=== PATIENT | female | born 1945 | race Caucasian/White ===

== ENCOUNTER 2018-10-19 12:47 | Emergency (ER) | payer MEDICARE, OTHER ==
[2018-10-19 12:58] VITALS: BP 183/104
== END 2018-10-19 12:59 | disposition home or self-care (01) ==
LOC: ED 12:47
DX: S61.210D Laceration without foreign body of right index finger without damage to nail, subsequent encounter (principal)

== ENCOUNTER → 2018-10-26 | Outpatient (CLI) | payer MEDICARE, OTHER ==
[~2018-10-26] VITALS: Ht 160 cm; Wt 63.6 kg
[~2018-10-26] MED LIST: HYZAAR 50-12.51 EACH PO
[2018-10-26 09:16] LABS: EOS # 0.2 (0.04-0.40); EOS % 2.4 % (1.0-5.0); HEMATOCRIT 39.4 % (37.0-47.0); HEMOGLOBIN 12.5 g/dL (12.5-16.0); LYMPH# 1.9 (1.50-4.00); MEAN CELL VOLUME 85 fl (78-100); MEAN CORPUSCULAR HEMOGLOBIN 27 pg (27-31); MEAN CORPUSCULAR HGB CONC 32 g/dL (33-37); MEAN PLATELET VOLUME 10.6 fl (7.4-10.4); MONO # 0.5 (0.20-0.80); NEU # 4.4 (1.40-6.50); PLATELET COUNT 273 K/mm3 (130-400); RED BLOOD COUNT 4.63 M/mm3 (4.10-5.30); RED CELL DISTRIBUTION WIDTH 13.7 % (11.5-14.5); WHITE BLOOD COUNT 7.1 K/mm3 (4.8-10.8)
[2018-10-26 09:17] VITALS: BP 184/103
[2018-10-26 09:26] LABS: ALBUMIN 4.6 g/dL (3.5-5.0); CALCIUM 9.4 mg/dL (8.4-10.2); POTASSIUM 4.5 mmol/L (3.6-5.0); TOTAL BILIRUBIN 0.6 mg/dL (0.2-1.3); TOTAL PROTEIN 8.4 g/dL (6.3-8.2)
[2018-10-26 09:48] LABS: URINE APPEARANCE CLOUDY; URINE BILIRUBIN NEGATIVE (NEGATIVE); URINE BLOOD 50 ery/uL (NEGATIVE); URINE COLOR YELLOW; URINE GLUCOSE NEGATIVE (NEGATIVE); URINE KETONE NEGATIVE (NEGATIVE); URINE LEUKOCYTE ESTERASE 2+ (NEGATIVE); URINE NITRATE POSITIVE (NEGATIVE); URINE PROTEIN(semi-quant) TRACE mg/dL (NEGATIVE); URINE UROBILINOGEN NORMAL (NORMAL); URINE WBC >50 /hpf (0-3)
[2018-10-27 06:59] LABS: PROTHROMBIN TIME 9.4 SECONDS (9.0-12.0)
== END ==
LOC: LAB 08:41
PROVIDERS: Internal Medicine
DX: Z01.818 Encounter for other preprocedural examination (principal); H26.9 Unspecified cataract

== ENCOUNTER 2018-11-07 17:23 | Emergency (ER) | payer MEDICARE, OTHER ==
[~2018-11-07] VITALS: Ht 157.5 cm; Wt 63.6 kg
[2018-11-07] MEDS ORDERED: ZOFRAN4 M2 PO (17:37)
[2018-11-07] MEDS ORDERED: DEXAMETHASONE/TO5 ML OP (17:37)
[2018-11-07 18:00] LABS: EOS % 0.1 % (1.0-5.0); HEMATOCRIT 40.5 % (37.0-47.0); HEMOGLOBIN 14.3 g/dL (12.5-16.0); LYMPH# 2.7 (1.50-4.00); MEAN CELL VOLUME 79 fl (78-100); MEAN CORPUSCULAR HEMOGLOBIN 28 pg (27-31); MEAN CORPUSCULAR HGB CONC 35 g/dL (33-37); MEAN PLATELET VOLUME 10.1 fl (7.4-10.4); MONO # 1.2 (0.20-0.80); PLATELET COUNT 368 K/mm3 (130-400); RED BLOOD COUNT 5.15 M/mm3 (4.10-5.30); RED CELL DISTRIBUTION WIDTH 12.5 % (11.5-14.5); WHITE BLOOD COUNT 13.4 K/mm3 (4.8-10.8)
[2018-11-07 18:03] LABS: NEU # 9.5 (1.40-6.50)
[2018-11-07 18:17] LABS: ALBUMIN 4.7 g/dL (3.4-4.8); CALCIUM 10.2 mg/dL (8.4-10.2); POTASSIUM 3.4 mmol/L (3.5-5.1); TOTAL PROTEIN 8.2 g/dL (6.2-8.1)
[2018-11-07 18:25] LABS: URINE APPEARANCE HAZY; URINE COLOR YELLOW; URINE PROTEIN(semi-quant) 2+ mg/dL (NEGATIVE)
[2018-11-07 18:26] LABS: URINE BILIRUBIN NEGATIVE (NEGATIVE); URINE BLOOD 250 ery/uL (NEGATIVE); URINE GLUCOSE NEGATIVE (NEGATIVE); URINE KETONE 1+ (NEGATIVE); URINE LEUKOCYTE ESTERASE 1+ (NEGATIVE); URINE NITRATE NEGATIVE (NEGATIVE); URINE UROBILINOGEN NORMAL (NORMAL); URINE WBC 31-50 /hpf (0-3)
[2018-11-07] MEDS ORDERED: MACROBID 100 M100 MG PO (21:09)
[2018-11-07 21:18] VITALS: BP 160/88
== END 2018-11-07 21:18 | disposition home or self-care (01) ==
LOC: ED 17:23
PROVIDERS: Family Medicine
DX: E86.0 Dehydration (principal); E87.1 Hypo-osmolality and hyponatremia; N39.0 Urinary tract infection, site not specified; I10 Essential (primary) hypertension
CPT/HCPCS: A4216; J0696; J7030

== ENCOUNTER → 2018-11-23 | Outpatient (CLI) | payer MEDICARE, OTHER ==
[2018-11-07 21:18] VITALS: BP 160/88
[~2018-11-23] MED LIST changes: +DEXAMETHASONE/TO5 ML OP; +MACROBID 100 M100 MG PO; +ZOFRAN4 M2 PO
[2018-11-23 09:39] LABS: CALCIUM 9.7 mg/dL (8.3-10.5); POTASSIUM 3.9 mmol/L (3.5-5.1)
== END ==
LOC: LAB 09:04
PROVIDERS: Internal Medicine
DX: I10 Essential (primary) hypertension (principal); E87.1 Hypo-osmolality and hyponatremia

== ENCOUNTER → 2019-02-15 | Outpatient (CLI) | payer MEDICARE, OTHER ==
[2019-02-15 09:26] LABS: POTASSIUM 4.5 mmol/L (3.5-5.1)
[2019-02-15 09:28] LABS: CALCIUM 10.3 mg/dL (8.3-10.5)
== END ==
LOC: LAB 09:09
PROVIDERS: Internal Medicine
DX: I10 Essential (primary) hypertension (principal); E87.1 Hypo-osmolality and hyponatremia

== ENCOUNTER → 2019-11-01 | Outpatient (CLI) | payer MEDICARE, OTHER ==
[2019-11-01 10:22] LABS: EOS # 0.2 (0.04-0.40); EOS % 2.4 % (1.0-5.0); HEMATOCRIT 38.9 % (37.0-47.0); HEMOGLOBIN 12.5 g/dL (12.5-16.0); LYMPH# 2.7 (1.50-4.00); MEAN CELL VOLUME 84 fl (78-100); MEAN CORPUSCULAR HEMOGLOBIN 27 pg (27-31); MEAN CORPUSCULAR HGB CONC 32 g/dL (33-37); MEAN PLATELET VOLUME 10.2 fl (7.4-10.4); MONO # 0.6 (0.20-0.80); NEU # 4.4 (1.40-6.50); PLATELET COUNT 267 K/mm3 (130-400); RED BLOOD COUNT 4.65 M/mm3 (4.10-5.30); RED CELL DISTRIBUTION WIDTH 13.7 % (11.5-14.5); WHITE BLOOD COUNT 7.9 K/mm3 (4.8-10.8)
[2019-11-01 10:32] LABS: POTASSIUM 4.3 mmol/L (3.5-5.1)
[2019-11-01 10:33] LABS: ALBUMIN 4.7 g/dL (3.4-4.8)
[2019-11-01 10:34] LABS: CALCIUM 9.9 mg/dL (8.3-10.5)
[2019-11-01 10:37] LABS: TOTAL BILIRUBIN 0.5 mg/dL (0.2-1.2)
[2019-11-01 10:41] LABS: MAGNESIUM 2.07 mg/dL (1.60-2.60)
[2019-11-01 11:26] LABS: ERYTHROCYTE SEDIMENTATION RATE 32 mm/hr (0-30)
== END ==
LOC: LAB 10:06
PROVIDERS: Internal Medicine
DX: Z12.11 Encounter for screening for malignant neoplasm of colon (principal); I10 Essential (primary) hypertension; K90.9 Intestinal malabsorption, unspecified; E78.2 Mixed hyperlipidemia

== ENCOUNTER → 2019-11-03 | Outpatient (CLI) | payer MEDICARE, OTHER | LOC: MAMMO 09:09 | DX: Z12.31 Encounter for screening mammogram for malignant neoplasm of breast (principal); Z13.820 Encounter for screening for osteoporosis; M85.852 Other specified disorders of bone density and structure, left thigh; M85.851 Other specified disorders of bone density and structure, right thigh ==

== ENCOUNTER → 2019-11-03 | Outpatient (CLI) | payer MEDICARE, OTHER | LOC: MAMMO 09:10 | DX: Z12.31 Encounter for screening mammogram for malignant neoplasm of breast (principal); N64.89 Other specified disorders of breast; M85.80 Other specified disorders of bone density and structure, unspecified site ==

== ENCOUNTER → 2019-12-06 | Outpatient (CLI) | payer MEDICARE, OTHER | LOC: LAB 08:04 | DX: Z01.812 Encounter for preprocedural laboratory examination (principal); Z20.828 Contact with and (suspected) exposure to other viral communicable diseases ==

== ENCOUNTER → 2019-12-09 | Day surgery (SDC) | payer MEDICARE, OTHER | LOC: MSO 07:09 | DX: Z12.11 Encounter for screening for malignant neoplasm of colon (principal); K57.30 Diverticulosis of large intestine without perforation or abscess without bleeding; Z88.8 Allergy status to other drugs, medicaments and biological substances; Z88.0 Allergy status to penicillin; I10 Essential (primary) hypertension | CPT/HCPCS: G0121; 00812; J2704; J7120 ==

== ENCOUNTER 2021-01-01 08:47 | Emergency (ER) | payer MEDICARE, OTHER ==
[2021-01-01 08:56] VITALS: BP 154/96
[2021-01-01] MEDS ORDERED: VALSARTAN AND H1 TA1 PO (09:00)
[2021-01-01] MEDS ORDERED: NORCO 325 MG-51 TA1 PO (11:18)
== END 2021-01-01 11:45 | disposition home or self-care (01) ==
LOC: ED 08:47
DX: S62.396A Other fracture of fifth metacarpal bone, right hand, initial encounter for closed fracture (principal); I10 Essential (primary) hypertension; Z88.0 Allergy status to penicillin; Z79.899 Other long term (current) drug therapy; W22.8XXA Striking against or struck by other objects, initial encounter

== ENCOUNTER → 2022-01-22 | Outpatient (CLI) | payer MEDICARE, OTHER ==
[~2022-01-22] MED LIST changes: +NORCO 325 MG-51 TA1 PO; +VALSARTAN AND H1 TA1 PO
[2022-01-22 16:18] LABS: BASO # 0.02 K/mm3 (0.02-0.10); EOS # 0.23 K/mm3 (0.04-0.40); EOS % 2.1 % (1.0-5.0); HEMATOCRIT 35.9 % (37.0-47.0); LYMPH# 3.15 K/mm3 (1.50-4.00); MEAN CELL VOLUME 84 fl (78-100); MEAN CORPUSCULAR HEMOGLOBIN 28 pg (27-31); MEAN CORPUSCULAR HGB CONC 33 g/dL (33-37); MEAN PLATELET VOLUME 10.1 fl (7.4-10.4); MONO # 0.76 K/mm3 (0.20-0.80); NEU # 6.58 K/mm3 (1.40-6.50); PLATELET COUNT 272 K/mm3 (130-400); RED BLOOD COUNT 4.26 M/mm3 (4.10-5.30); RED CELL DISTRIBUTION WIDTH 12.4 % (11.5-14.5); WHITE BLOOD COUNT 10.8 K/mm3 (4.8-10.8)
[2022-01-22 16:26] LABS: ALBUMIN 4.6 g/dL (3.4-4.8); POTASSIUM 3.9 mmol/L (3.5-5.1)
[2022-01-22 16:27] LABS: CALCIUM 10.1 mg/dL (8.3-10.5)
[2022-01-22 16:28] LABS: TOTAL PROTEIN 7.7 g/dL (6.2-8.1)
[2022-01-22 16:30] LABS: TOTAL BILIRUBIN 0.7 mg/dL (0.2-1.2)
[2022-01-22 16:35] LABS: MAGNESIUM 1.76 mg/dL (1.60-2.60)
[2022-01-22 17:26] LABS: ERYTHROCYTE SEDIMENTATION RATE 39 mm/hr (0-30)
== END ==
LOC: LAB 15:56
PROVIDERS: Internal Medicine
DX: Z12.39 Encounter for other screening for malignant neoplasm of breast (principal); M81.0 Age-related osteoporosis without current pathological fracture; I10 Essential (primary) hypertension; E78.2 Mixed hyperlipidemia; K90.9 Intestinal malabsorption, unspecified; E55.9 Vitamin D deficiency, unspecified

== ENCOUNTER → 2022-02-26 | Outpatient (CLI) | payer MEDICARE, OTHER | LOC: MAMMO 11:21 | DX: M81.0 Age-related osteoporosis without current pathological fracture (principal); Z12.31 Encounter for screening mammogram for malignant neoplasm of breast ==

== ENCOUNTER → 2022-02-26 | Outpatient (CLI) | payer MEDICARE, OTHER | LOC: RAD 11:40 → MAMMO 12:00 | DX: Z12.31 Encounter for screening mammogram for malignant neoplasm of breast (principal); Z13.820 Encounter for screening for osteoporosis; M85.89 Other specified disorders of bone density and structure, multiple sites ==

== ENCOUNTER 2022-09-25 13:25 | Emergency (ER) | payer MEDICARE, OTHER ==
[~2022-09-25] VITALS: Ht 157.5 cm; Wt 63.6 kg
[2022-09-25] MEDS ORDERED: AMBIEN5 M1 PO (13:36)
[2022-09-25] MEDS ORDERED: PANTOPRAZOLE SO40 MG PO (13:36)
[2022-09-25] MEDS ORDERED: ROSUVASTATIN CA20 MG PO (13:36)
[2022-09-25] MEDS ORDERED: LATANOPROST 2.2.5 ML OU (13:36)
[2022-09-25 15:49] VITALS: BP 165/84
[2022-09-26] MEDS ORDERED: ACETAMINOPHEN-H1 TA2 PO (15:03)
[2022-09-26] MEDS ORDERED: KETOROLAC10 MG PO (16:29)
[2022-09-26] MEDS ORDERED: ONDANSETRON HYDR4 MG PO (16:30)
== END 2022-09-25 15:50 | disposition home or self-care (01) ==
LOC: ED 13:25
DX: S63.281A Dislocation of proximal interphalangeal joint of left index finger, initial encounter (principal); S01.21XA Laceration without foreign body of nose, initial encounter; Z28.310 Unvaccinated for COVID-19; Z23 Encounter for immunization; W18.30XA Fall on same level, unspecified, initial encounter; Y93.01 Activity, walking, marching and hiking; Y92.524 Gas station as the place of occurrence of the external cause
CPT/HCPCS: 90715

== ENCOUNTER 2022-09-26 14:17 | Emergency (ER) | payer MEDICARE, OTHER ==
[~2022-09-26] VITALS: Ht 157.5 cm; Wt 63.6 kg
[~2022-09-26 14:17] MED LIST changes: -ACETAMINOPHEN-H1 TA2 PO; -KETOROLAC10 MG PO; -ONDANSETRON HYDR4 MG PO
[2022-09-26] MEDS ORDERED: ACETAMINOPHEN-H1 TA2 PO (15:03)
[2022-09-26 15:46] LABS: BASO # 0.01 K/mm3 (0.02-0.10); EOS # 0.02 K/mm3 (0.04-0.40); EOS % 0.2 % (1.0-5.0); HEMATOCRIT 36.4 % (37.0-47.0); HEMOGLOBIN 12.5 g/dL (12.5-16.0); MEAN CELL VOLUME 81 fl (78-100); MEAN CORPUSCULAR HEMOGLOBIN 28 pg (27-31); MEAN CORPUSCULAR HGB CONC 34 g/dL (33-37); MEAN PLATELET VOLUME 9.7 fl (7.4-10.4); MONO # 0.56 K/mm3 (0.20-0.80); NEU # 11.17 K/mm3 (1.40-6.50); PLATELET COUNT 278 K/mm3 (130-400); RED BLOOD COUNT 4.47 M/mm3 (4.10-5.30); WHITE BLOOD COUNT 13.2 K/mm3 (4.8-10.8)
[2022-09-26 15:50] LABS: ALBUMIN 4.8 g/dL (3.4-4.8); POTASSIUM 3.7 mmol/L (3.5-5.1)
[2022-09-26 15:54] LABS: TOTAL PROTEIN 7.6 g/dL (6.2-8.1)
[2022-09-26] MEDS ORDERED: KETOROLAC10 MG PO (16:29)
[2022-09-26] MEDS ORDERED: ONDANSETRON HYDR4 MG PO (16:30)
[2022-09-26 16:58] VITALS: BP 140/80
== END 2022-09-26 16:45 | disposition home or self-care (01) ==
LOC: ED 14:17
PROVIDERS: Family Medicine
DX: S06.0X0D Concussion without loss of consciousness, subsequent encounter (principal); S02.2XXD Fracture of nasal bones, subsequent encounter for fracture with routine healing; W19.XXXD Unspecified fall, subsequent encounter
CPT/HCPCS: J0780; J1200; J1885; J7030

== ENCOUNTER → 2022-09-26 | Outpatient (CLI) | payer MEDICARE, OTHER ==
[~2022-09-26] MED LIST changes: +ACETAMINOPHEN-H1 TA2 PO; +AMBIEN5 M1 PO; +KETOROLAC10 MG PO; +LATANOPROST 2.2.5 ML OU; +ONDANSETRON HYDR4 MG PO; +PANTOPRAZOLE SO40 MG PO; +ROSUVASTATIN CA20 MG PO
== END ==
LOC: RAD 13:38
DX: S02.2XXA Fracture of nasal bones, initial encounter for closed fracture (principal); G44.52 New daily persistent headache (NDPH); X58.XXXA Exposure to other specified factors, initial encounter

== ENCOUNTER → 2023-03-03 | Outpatient (CLI) | payer MEDICARE, OTHER ==
[~2023-03-03] MED LIST changes: +ACETAMINOPHEN-H1 TA2 PO; +KETOROLAC10 MG PO; +ONDANSETRON HYDR4 MG PO
== END ==
LOC: MAMMO 10:39
DX: Z12.31 Encounter for screening mammogram for malignant neoplasm of breast (principal)

== ENCOUNTER → 2024-02-27 | Outpatient (CLI) | payer MEDICARE, OTHER ==
[2024-02-27 11:13] LABS: BASO # 0.02 K/mm3 (0.02-0.10); EOS # 0.28 K/mm3 (0.04-0.40); EOS % 3.3 % (1.0-5.0); HEMATOCRIT 36.4 % (37.0-47.0); HEMOGLOBIN 12.3 g/dL (12.5-16.0); LYMPH# 2.99 K/mm3 (1.50-4.00); MEAN CELL VOLUME 87 fl (78-100); MEAN CORPUSCULAR HEMOGLOBIN 29 pg (27-31); MEAN CORPUSCULAR HGB CONC 34 g/dL (33-37); NEU # 4.54 K/mm3 (1.40-6.50); PLATELET COUNT 239 K/mm3 (130-400); RED BLOOD COUNT 4.19 M/mm3 (4.10-5.30); RED CELL DISTRIBUTION WIDTH 11.5 % (11.5-14.5); WHITE BLOOD COUNT 8.5 K/mm3 (4.8-10.8)
[2024-02-27 11:22] LABS: ALBUMIN 4.7 g/dL (3.4-4.8)
[2024-02-27 11:23] LABS: CALCIUM 10.3 mg/dL (8.3-10.5)
[2024-02-27 11:25] LABS: TOTAL PROTEIN 7.3 g/dL (6.2-8.1)
[2024-02-27 11:26] LABS: TOTAL BILIRUBIN 0.8 mg/dL (0.2-1.2)
[2024-02-27 11:31] LABS: MAGNESIUM 1.76 mg/dL (1.60-2.60)
== END ==
LOC: LAB 10:52
PROVIDERS: Internal Medicine
DX: Z12.11 Encounter for screening for malignant neoplasm of colon (principal); I10 Essential (primary) hypertension; K90.9 Intestinal malabsorption, unspecified; E78.2 Mixed hyperlipidemia

== ENCOUNTER → 2024-03-08 | Outpatient (CLI) | payer MEDICARE, OTHER | LOC: LAB 08:17 | DX: Z12.11 Encounter for screening for malignant neoplasm of colon (principal); I10 Essential (primary) hypertension; K90.9 Intestinal malabsorption, unspecified; E78.2 Mixed hyperlipidemia ==

== ENCOUNTER → 2024-03-25 | Outpatient (CLI) | payer MEDICARE, OTHER | LOC: MAMMO 13:15 | DX: Z12.31 Encounter for screening mammogram for malignant neoplasm of breast (principal); M81.0 Age-related osteoporosis without current pathological fracture ==

== ENCOUNTER → 2024-09-08 | Outpatient (CLI) | payer MEDICARE, OTHER ==
[2024-09-08 08:34] LABS: ALBUMIN 4.7 g/dL (3.4-4.8)
[2024-09-08 08:35] LABS: CALCIUM 10.5 mg/dL (8.3-10.5)
[2024-09-08 08:36] LABS: TOTAL PROTEIN 7.6 g/dL (6.2-8.1)
[2024-09-08 08:38] LABS: TOTAL BILIRUBIN 0.9 mg/dL (0.2-1.2)
== END ==
LOC: LAB 08:06
PROVIDERS: Internal Medicine
DX: E78.2 Mixed hyperlipidemia (principal)